=== PATIENT | female | born 2000 | race Caucasian/White ===

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

== ENCOUNTER 2023-09-02 10:08 | Emergency (ER) | payer SELFPAY ==
[~2023-09-02] VITALS: Ht 160 cm; Wt 82.3 kg
[~2023-09-02 10:08] MED LIST: ZOFRAN ODT4 MG PO
[2023-09-02 10:15] VITALS: TEMP 98.2
[2023-09-02 10:50] LABS: COLLECTION METHOD CLEAN CATCH
[2023-09-02 10:58] LABS: URINE APPEARANCE TURBID (CLEAR/HAZY); URINE BLOOD 3+ (NEGATIVE); URINE COLOR RED (YELLOW); URINE GLUCOSE NEGATIVE (NEGATIVE); URINE KETONE NEGATIVE (NEGATIVE); URINE NITRATE POSITIVE (NEGATIVE); URINE PROTEIN(semi-quant) 3+ (NEGATIVE)
[2023-09-02] MEDS ORDERED: cefTRIAXone 1 G,Lidocaine PF 1% 2.1 ML IM ONE (11:30)
[2023-09-02] MEDS ORDERED: CEPHALEXIN500 M1 PO (11:39)
[2023-09-02 12:17] VITALS: BP 115/95; PULSE 71
== END 2023-09-02 12:17 | disposition home or self-care (01) ==
LOC: COL.ER 10:08
PROVIDERS: Physician Assistant
DX: N39.0 Urinary tract infection, site not specified (principal)
CPT/HCPCS: J0696